=== PATIENT | male | born 1940 | race Caucasian/White ===

== ENCOUNTER → 2017-09-03 | Outpatient (CLI) | payer MEDICARE, OTHER ==
[~2017-09-03] MED LIST: COUMADIN,JANTOVE5 MG PO; FENOFIBRATE145 M1 PO; HYDROCHLOROTHIA50 MG PO; IRON325 M1 PO; K-DUR20 MEQ PO; LEXAPRO20 MG PO; LIPITOR40 MG PO; LOPRESSOR25 MG PO; MATZIM LA420 MG PO; METFORMIN HCL500 M1 PO; PIOGLITAZONE-M1 EACH PO; PLAVIX75 MG PO; PRESERVISION A1 EAC2 PO; PROTONIX40 MG PO; RANITIDINE HCL150 M1 PO; ST. JOSEPH ASPI81 MG PO; TYLENOL EXTRA500 MG PO; VALSARTAN160 MG PO; WARFARIN SODIUM5 MG PO; ZANTAC150 MG PO
== END | disposition home or self-care (01) ==
LOC: CDC 08:54
DX: Z01.810 Encounter for preprocedural cardiovascular examination (principal); N32.89 Other specified disorders of bladder; I49.3 Ventricular premature depolarization; R94.31 Abnormal electrocardiogram [ECG] [EKG]
CPT/HCPCS: 93000

== ENCOUNTER 2017-09-12 05:32 | Day surgery (SDC) | payer OTHER ==
[~2017-09-12] VITALS: Ht 162.6 cm; Wt 104.7 kg
[2017-09-12 05:58] VITALS: BP 131/68
== END 2017-09-12 07:30 | disposition home or self-care (01) ==
LOC: SDC
PROVIDERS: Urology
DX: N32.9 Bladder disorder, unspecified (principal); Z79.02 Long term (current) use of antithrombotics/antiplatelets; Z53.09 Procedure and treatment not carried out because of other contraindication
CPT/HCPCS: 82948; 86850; 86900; 86901; J0131; J0690; J2250; J2405

== ENCOUNTER 2017-09-18 08:16 | Day surgery (SDC) | payer OTHER ==
[~2017-09-18] VITALS: Ht 162.6 cm; Wt 104.8 kg
[2017-09-18 08:50] VITALS: BP 118/68
[2017-09-18 14:03] VITALS: BP 124/72
[2017-09-18 20:23] VITALS: BP 106/59
[2017-09-19 00:38] VITALS: BP 101/59
[2017-09-19 03:53] VITALS: BP 96/53
[2017-09-19 08:00] VITALS: BP 114/55
[2017-09-19 12:01] VITALS: BP 117/52
== END 2017-09-19 12:42 | disposition home or self-care (01) ==
LOC: SDC 08:16 → 2EASTP 12:50 → 2SOUTH 12:50 → ENRESERV 13:22 → 2EASTP 13:59 → SDC 16:20 → 2EASTP 09-19 12:42
PROVIDERS: Urology
PROC: 0TBB8ZX Excision of Bladder, Via Natural or Artificial Opening Endoscopic, Diagnostic (ICD-10-PCS; principal; 2017-09-18)
DX: C67.8 Malignant neoplasm of overlapping sites of bladder (principal); E11.9 Type 2 diabetes mellitus without complications; Z86.73 Personal history of transient ischemic attack (TIA), and cerebral infarction without residual deficits; I25.10 Atherosclerotic heart disease of native coronary artery without angina pectoris; I25.2 Old myocardial infarction; I10 Essential (primary) hypertension; Z83.3 Family history of diabetes mellitus; Z82.49 Family history of ischemic heart disease and other diseases of the circulatory system; Z87.891 Personal history of nicotine dependence; Z95.1 Presence of aortocoronary bypass graft
CPT/HCPCS: 82948; 88305; G0378; J0330; J0690; J1170; J2405; J3010; J7120